=== PATIENT | female | born 1985 | race Caucasian/White ===

== ENCOUNTER 2016-12-21 10:43 | Emergency (ER) | payer BC ==
[2016-12-21 11:11] VITALS: BP 125/76
--- NOTE | 2016-12-21 12:21 | UC ---
Upper Extremity HPI - HPI Summary HPI Summary: Patient slammed her hand in the car door yesterday, blood pulling under right middle nail. pain in the distal phalange - History of Current Complaint Chief Complaint: PATRICIAkin Stated Complaint: RIGHT HAND MIDDLE FINGER INJURY Time Seen by Provider: 12/21/16 11:54 Hx Obtained From: Patient Hx Last Menstrual Period: 2007 ?: No Onset/Duration: Sudden Onset, Lasting Hours Severity Initially: Moderate Severity Currently: Severe Location Of Pain: Is Diffuse - finger Character: Aching, Throbbing, Stiffness Aggravating Factor(s): Movement Alleviating Factor(s): Nothing Associated Signs And Symptoms: Positive: Swelling, Bruising - Risk Factors Non-Orthopedic Risk Factor: Negative - Allergies/Home Medications Allergies/Adverse Reactions: Allergies Allergy/AdvReac Type Severity Reaction Status Date / Time No Known Allergies Allergy Verified 12/21/16 11:05 PMH/Surg Hx/FS Hx/Imm Hx Previously Healthy: Yes Endocrine History Of: Denies: Diabetes, Thyroid Disease Cardiovascular History Of: Denies: Cardiac Disorders, Hypertension, Pacemaker/ICD Respiratory History Of: Denies: COPD, Asthma GI/ History Of: Denies: Gastroesophageal Reflux, Ulcer, Renal Disease Neurological History Of: Denies: CVA, Dementia, Seizures Other History Of: Negative For: Anticoagulant Therapy - Surgical History Surgical History: None - Family History Known Family History: Positive: None Negative: Cardiac Disease, Hypertension - Social History Alcohol Use: Occasionally Alcohol Amount: once a week- 10 drinks/ week Substance Use Type: None Smoking Status (MU): Former Smoker Type: Cigarettes Amount Used/How Often: socially When Did the Patient Quit Smoking/Using Tobacco: May 2016 Review of Systems Constitutional: Negative Skin: Bruising Eyes: Negative ENT: Negative Respiratory: Negative Cardiovascular: Negative Gastrointestinal: Negative Genitourinary: Negative Motor: Negative Neurovascular: Negative Musculoskeletal: Negative Neurological: Negative Psychological: Negative All Other Systems Reviewed And Are Negative: Yes Physical Exam Triage Information Reviewed: Yes Appearance: Well-Appearing, Well-Nourished, Pain Distress Vital Signs: Initial Vital Signs Temp 98.3 F 12/21/16 11:06 Pulse 57 12/21/16 11:06 Resp 14 12/21/16 11:06 BP 125/76 12/21/16 11:06 Pulse Ox 99 12/21/16 11:06 Vital Signs Reviewed: Yes Eye Exam: Normal Eyes: Positive: Conjunctiva Clear ENT Exam: Normal ENT: Positive: Pharynx normal, TMs normal Dental Exam: Normal Neck exam: Normal Respiratory Exam: Normal Cardiovascular Exam: Normal Abdominal Exam: Normal Abdomen Description: Positive: Nontender, No Organomegaly, Soft Bowel Sounds: Positive: Present Musculoskeletal: Positive: Strength Limited @, ROM Limited @, Edema @ - in right middle finger Neurological Exam: Normal Neurological: Positive: Alert, Muscle Tone Normal Psychological Exam: Normal Skin: Positive: Other - ecchymosis under the nail bed, erythema around the nail. swelling apparent Upper Extremity Course/Dx - Course Course Of Treatment: hx obtained, exam performed, meds reviewed, subungal hematoma releaved, xray of finger obtained and is negative - Differential Dx/Diagnosis Differential Diagnosis/HQI/PQRI: Contusion, Fracture (Open), Fracture (Closed), Hematoma, Strain, Sprain Provider Diagnoses: subungal hematoma Discharge - Discharge Plan Condition: Stable Disposition: HOME Patient Education Materials: Subungual Hematoma (ED) Additional Instructions: 1. keep the area clean and dry, warm water soaks will help with healing 2. there is no fracture of the finger seen on xray.
--- NOTE | 2016-12-21 12:46 | RAD ---
INDICATION: Right third digit injury COMPARISON: None TECHNIQUE: AP, lateral, and oblique views were obtained. FINDINGS: The bony structures, joint spaces, and soft tissues are normal for age. IMPRESSION: NO ACUTE FRACTURE.
[2016-12-21] MEDS ORDERED: Ibuprofen TAB* 600 MG PO ONE (12:49)
== END 2016-12-21 13:03 | disposition home or self-care (01) ==
LOC: UCCORT 10:43
DX: S60.131A Contusion of right middle finger with damage to nail, initial encounter (principal); X58.XXXA Exposure to other specified factors, initial encounter; Z87.891 Personal history of nicotine dependence
CPT/HCPCS: 11740; 73140; 99212; A9270-GY; G0463

== ENCOUNTER 2018-02-26 13:49 | Emergency (ER) | payer BC, OTHER ==
--- NOTE | 2018-02-26 15:06 | UC ---
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 Burning pain. Worse with certain movements. Some radiation of pain down into the hand. No history of previous upper back injury or pain. - History of Current Complaint Chief Complaint: UCBackPain Stated Complaint: BACK INJURY/PAIN Time Seen by Provider: 02/26/18 14:59 Hx Obtained From: Patient Hx Last Menstrual Period: Mar 2008 ?: No Onset/Duration: Sudden Onset, Lasting Hours - 5 Timing: Constant Severity Initially: Moderate Severity Currently: Moderate Pain Intensity: 5 Back Pain: Is Discrete @ - thoracic upper back, Radiates To - having radiation down the left arm into the hand Character: Sharp, Burning Aggravating Factor(s): Movement Associated Signs And Symptoms: Positive: Tingling. Negative: Swelling, Redness , Bruising, Fever, Weakness, Numbness, Bladder Incontinence, Bowel Incontinence Related History: Occupational Injury - Allergies/Home Medications Allergies/Adverse Reactions: Allergies Allergy/AdvReac Type Severity Reaction Status Date / Time No Known Allergies Allergy Verified 02/26/18 14:11 PMH/Surg Hx/FS Hx/Imm Hx Previously Healthy: Yes Other History Of: Negative For: Anticoagulant Therapy - Surgical History Surgical History: None - Family History Known Family History: Positive: None Negative: Cardiac Disease, Hypertension - Social History Occupation: Employed Full-time Lives: With Family Alcohol Use: None Alcohol Amount: once a week- 10 drinks/ week Substance Use Type: None Smoking Status (MU): Light Every Day Tobacco Smoker Type: Cigarettes Amount Used/How Often: 1 pack every 3 days Have You Smoked in the Last Year: Yes When Did the Patient Quit Smoking/Using Tobacco: May 2016 Cessation Counseling: Patient Advised to Stop - Immunization History Most Recent Tetanus Shot: UTD Review of Systems Neurological: Paresthesia Is Patient Immunocompromised?: No All Other Systems Reviewed And Are Negative: Yes Physical Exam Triage Information Reviewed: Yes Appearance: Well-Appearing, Well-Nourished, Pain Distress Vital Signs: Initial Vital Signs Temp 98.5 F 02/26/18 14:12 Pulse 99 02/26/18 14:12 Resp 16 02/26/18 14:12 BP 141/81 02/26/18 14:12 Pulse Ox 100 02/26/18 14:12 Vital Signs Reviewed: Yes Eyes: Positive: Conjunctiva Clear Neck exam: Normal Respiratory Exam: Normal Cardiovascular Exam: Normal Musculoskeletal: Positive: Other: - Tender in the thoracic spine around T5T6. Neurological Exam: Normal - upper extremity strength and reflexes. Neurological: Positive: Other: - Abnormal sensation to sharp dull in the left upper back and hypersensitive in the right upper back. Some hypersensitivity in the right forearm around the Diagnostics - Radiology No standard instances Xray Interpretation: No Acute Changes - Just OA changes Radiology Interpretation Completed By: ED Physician Back Pain Course/Dx - Differential Dx/Diagnosis Differential Diagnosis/HQI/PQRI: Arthritis, Herniated Disc, Strain, Sprain Provider Diagnoses: Acute thoracic radiculitis. Acute cervical radiculitis Discharge - Sign-Out/Discharge Documenting (check all that apply): Patient Departure - Discharge Plan Condition: Stable Disposition: HOME Prescriptions: Gabapentin CAP(*) [Neurontin 300 CAP(*)] 300 mg PO TID PRN #90 cap PRN Reason: Pain - Back predniSONE [Prednisone 20 MG TAB] 20 mg PO DAILY #18 tablet Patient Education Materials: Thoracic Disc Herniation (ED), Cervical Disc Herniation (ED), Prednisone (By mouth), Gabapentin (By mouth) Referrals: No Primary Care Phys,NOPCP [Primary Care Provider] - Lottie Morales MD [Medical Doctor] - 2 Days (follow up SEVERIANO on thoracic pinched nerve.) Additional Instructions: GABAPENTIN: Gabapentin is an anti-seizure medication that is more often used for nerve pain. It helps to stabilize the nerve to stop the pain. Its primary side effect is sedation which will improve over time. Most people will start with only one capsule 1 to 2 hours before bed, but if your pain is more severe you may want to start with one capsule twice a day. If the pain is still an issue after another 1-2days the dose may be increased to a maximum of 1 capsule 3 times a day. Decrease the dose by one capsule a day if there is excessive sedation or it is not working. You can also decrease it to discontinue it if the pain is resolving. - Billing Disposition and Condition Condition: STABLE Disposition: Home
--- NOTE | 2018-02-26 16:11 | RAD ---
Indication: Neck pain, cervical radiculitis. 5 views of the cervical spine demonstrates straightening of the normal lordosis. Disc spaces all well-preserved. Spinal canal appears to be intact. The intervertebral foramen appear patent. The vertebral bodies appear normal in height with no spondylolisthesis. No evidence of facet malalignment is present. IMPRESSION: Straightening of the normal lordosis. Otherwise no fracture. Spinal canal and foramen appear intact.
--- NOTE | 2018-02-26 16:13 | RAD ---
Indication: Cervical radiculitis, lifting injury. 2 views of the thoracic spine demonstrates some mild disc space narrowing in the upper thoracic spine. There is no evidence of compression fracture. Minimal osteophyte formation is noted at T7-T8, T6-T7 and T5-T6. IMPRESSION: Mild degenerative disc disease in the mid to upper thoracic spine without definite evidence of compression fracture.
[2018-02-26 16:20] VITALS: BP 120/74
== END 2018-02-26 16:23 | disposition home or self-care (01) ==
LOC: UCCORT 13:49
DX: M54.14 Radiculopathy, thoracic region (principal); M54.12 Radiculopathy, cervical region; X50.0XXA Overexertion from strenuous movement or load, initial encounter; Y93.89 Activity, other specified; Y92.9 Unspecified place or not applicable; F17.210 Nicotine dependence, cigarettes, uncomplicated
CPT/HCPCS: 72050; 72070; 99212; G0463

== ENCOUNTER → 2018-06-01 18:08 | Emergency (ER) | payer OTHER ==
--- OUTSIDE RECORDS SUMMARY | 2018-06-01 19:16 | XMS REPORT ---
:1985 External Reference #:[id number] Author Organization [facility] Address [address] [place] [address] [place] [address] Phone [phone] Care Team Providers Name Role Phone Patient's Choice Primary Care Physician Unavailable Payers Type Date Identification Payment Provider Subscriber Numbers Workers Compensation Onset: Policy Number: [employer] Jalyn Aguilar 02/26/2018 [id number] Group Number: [id number] [address] PayID: [place] [address] Problems Date Description Provider Status Onset: 03/30/2018 Brachial neuritis Roc Dixon M.D. Active Onset: 03/14/2018 Neck sprain Roc Dixon M.D. Active Family History Date Family Member(s) Problem(s) Comments General No Current Problems Siblings 3 Social History Type Date Description Comments Marital Status Significant Other Lives With Family Occupation Off right now Passpack injury at work ETOH Use Denies alcohol use Smoking Light tobacco smoker (10 or fewer cigarettes/day) Recreational Drug Use Denies Drug Use Daily Caffeine Consumes on average 1 cup of regular coffee per day Allergies, Adverse Reactions, Alerts Date Description Reaction Status Severity Comments 03/09/2018 NKDA active Medications Medication Date Status Form Strength Qnty SIG Indications Ordering Provider Methocarbamol Active Tablets 500mg 60tabs 1 by S16.1xxA Roc 018 mouth Zack, twice a M.D. day as needed for spasm Mirena (52 MG) Active IUD 20mcg/24HR Unknown 000 Gabapentin Hx Capsules 300mg 1 by Unknown 000 - mouth three 018 times a day Prednisone 00/00/0 Hx Tablets 20mg 3 PO Unknown 000 - daily x3days 018 then 2 PO daily x3 days then 1 PO daily x3 days Vital Signs Date Vital Result Comment 05/16/2018 Height 67 inches 5'7" Heart Rate 80 /min BP Systolic Sitting 130 mmHg BP Diastolic Sitting 82 mmHg Respiratory Rate 16 /min Body Temperature 99.2 F 04/25/2018 Height 67 inches 5'7" Heart Rate 64 /min BP Systolic Sitting 122 mmHg BP Diastolic Sitting 78 mmHg Body Temperature 98.0 F 03/30/2018 Height 67 inches 5'7" Weight 165.00 lb BP Systolic Sitting 118 mmHg BP Diastolic Sitting 72 mmHg Pain Level 4 BMI (Body Mass Index) 25.8 kg/m2 03/14/2018 Height 67 inches 5'7" Weight 165.00 lb BP Systolic Sitting 126 mmHg BP Diastolic Sitting 82 mmHg Pain Level 5 BMI (Body Mass Index) 25.8 kg/m2 Results Description No Information Procedures Description No Information Encounters Type Date Location Provider CPT E/M Dx Office Visit 05/16/2018 [facility] Roc Dixon [id number] [id number] 11:40a Of [facility] Office Visit 04/25/2018 [facility] Roc Dixon 05901 [id number] 11:10a [facility] Office Visit 03/30/2018 [facility] Roc Dixon 67439 M54.12 1:10p Of [facility] Office Visit 03/14/2018 [facility] Roc Dixon, 60968 S16.1xxA 9:40a Of [facility] S16.1xxA Plan of Care 05/16/2018 - Roc Dixon M.D.S16.1xxD Strain of muscle, fascia and tendon at neck level, subsFollow up:Recommend she discuss with comp referral for second opinion
[2018-06-01 19:32] VITALS: BP 118/76
--- NOTE | 2018-06-01 19:50 | UC ---
Back Pain HPI - HPI Summary HPI Summary: 32-year-old woman here with a chief complaint of thoracic back pain. This pain started on February 26, 2018 while at work while lifting. She was initially seen here at urgent care and evaluated in had plain x-rays done of her neck and her thoracic spine. The thoracic spine x-rays did show some degenerative disc disease in her upper thoracic spine. She ended up seeing neurosurgery and was evaluated for the neck pain. Patient reports having gone to [facility] for an MRI which she believes is just of her cervical spine not upper thoracic spine. She was recently discharged back to work after evaluation with neurosurgery. 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 No weakness or numbness the pain is just to the left of the thoracic spine in the upper thoracic area. No shortness of breath. - History of Current Complaint Chief Complaint: UCBackPain Stated Complaint: WC-BACK PAIN Time Seen by Provider: 06/01/18 19:27 Hx Last Menstrual Period: 04/02 Pain Intensity: 7 - Allergies/Home Medications Allergies/Adverse Reactions: Allergies Allergy/AdvReac Type Severity Reaction Status Date / Time No Known Allergies Allergy Verified 06/01/18 19:19 PMH/Surg Hx/FS Hx/Imm Hx Previously Healthy: Yes Other History Of: Negative For: Anticoagulant Therapy - Surgical History Surgical History: None - Family History Known Family History: Positive: None Negative: Cardiac Disease, Hypertension, Diabetes - Social History Alcohol Use: None Alcohol Amount: once a week- 10 drinks/ week Substance Use Type: None Smoking Status (MU): Light Every Day Tobacco Smoker Type: Cigarettes Amount Used/How Often: 1 pack every 3 days Have You Smoked in the Last Year: Yes When Did the Patient Quit Smoking/Using Tobacco: May 2016 - Immunization History Most Recent Tetanus Shot: UTD Review of Systems Constitutional: Negative Skin: Negative Eyes: Negative ENT: Negative Respiratory: Negative Cardiovascular: Negative Gastrointestinal: Negative Motor: Negative Neurovascular: Negative Musculoskeletal: Other: - SEE HPI Neurological: Negative Psychological: Negative Is Patient Immunocompromised?: No All Other Systems Reviewed And Are Negative: Yes Physical Exam Triage Information Reviewed: Yes Appearance: Well-Nourished, Pain Distress - MILD Vital Signs: Initial Vital Signs Temp 98.7 F 06/01/18 19:23 Pulse 72 06/01/18 19:23 Resp 18 06/01/18 19:23 BP 118/76 06/01/18 19:23 Pulse Ox 98 06/01/18 19:23 Vital Signs Reviewed: Yes Eye Exam: Normal Eyes: Positive: Conjunctiva Clear Neck exam: Normal Neck: Positive: Supple, Nontender Respiratory: Positive: Lungs clear, Normal breath sounds, No respiratory distress Cardiovascular: Positive: RRR Musculoskeletal: Positive: Other: - Patient is tender to palpation to the left of the upper thoracic spine approximately T4 to 6 between the thoracic spines and the medial border of the left scapula. Arms shoulders have full range of motion. Normal radial pulses bilaterally fingers wrists and elbows have full range of motion full-strength no sensation deficit. Normal capillary refill. No sensation deficit. Neurological Exam: Normal Neurological: Positive: Alert, Muscle Tone Normal Psychological Exam: Normal Psychological: Positive: Age Appropriate Behavior Skin Exam: Normal Back Pain Course/Dx - Course Course Of Treatment: Last time the patient was here she had a prednisone taper and was on gabapentin. She feels the prednisone did help with her pain but the gabapentin did not. She has been taking ibuprofen for the pain which helps minimally. Plan a prescription for prednisone taper and also ibuprofen. Also follow-up with occupational medicine, DR CA. - Differential Dx/Diagnosis Provider Diagnoses: THORACIC BACK PAIN Discharge - Sign-Out/Discharge Documenting (check all that apply): Patient Departure All imaging exams completed and their final reports reviewed: No Studies - Discharge Plan Condition: Stable Disposition: HOME Prescriptions: Ibuprofen TAB* [Motrin TAB* 600 MG] 600 mg PO Q6H PRN #30 tab PRN Reason: Pain predniSONE TAB* [Deltasone 20 MG TAB*] 20 mg PO DAILY #18 tab Patient Education Materials: Back Pain (ED) Forms: *Work Release Referrals: Edin Ca MD [Medical Doctor] - Additional Instructions: FOLLOW UP WITH [facility]UP[facility]. GET RECHECKED FOR ANY WORSENING OF YOUR CONDITION OR QUESTIONS OR CONCERNS. - Billing Disposition and Condition Condition: STABLE Disposition: Home
== END | disposition home or self-care (01) ==
LOC: UCCORT 18:08
DX: M54.6 Pain in thoracic spine (principal); F17.210 Nicotine dependence, cigarettes, uncomplicated
CPT/HCPCS: 99212; G0463

== ENCOUNTER 2018-09-09 09:58 | Emergency (ER) | payer MEDICAID, OTHER ==
[2018-09-09 11:11] VITALS: BP 139/75
[2018-09-09 11:36] LABS: Influenza A Molecular NEGATIVE (Negative); Influenza B Molecular NEGATIVE (Negative)
--- NOTE | 2018-09-09 12:14 | UC ---
FLU HPI - HPI Summary HPI Summary: Pt c/o sudden onset body aches, nasal congestion, cough X 1 day. Son has similar symptoms. - History of Current Complaint Chief Complaint: UCRespiratory Stated Complaint: FEVER,URIARTE,ST Time Seen by Provider: 09/09/18 11:06 Hx Obtained From: Patient Hx Last Menstrual Period: Mirena IUD ?: No Onset/Duration: Sudden Onset, Lasting Days, Still Present Severity Currently: Mild Severity Initially: Mild Pain Intensity: 3 Pain Scale Used: 0-10 Numeric Associated Signs & Symptoms: Positive: Fever - subjective, Myalgia, Cough, Nasal Congestion Related Hx: Possible Flu/Infectious Exposure - Risk Factors Influenza Risk Factors: Negative - Allergy/Home Medications Allergies/Adverse Reactions: Allergies Allergy/AdvReac Type Severity Reaction Status Date / Time No Known Allergies Allergy Verified 09/09/18 11:05 Home Medications: Home Medications Ibuprofen TAB* [Advil TAB*] 400 mg PO Q6H PRN 09/09/18 [History Confirmed ] PMH/Surg Hx/FS Hx/Imm Hx Previously Healthy: Yes Other History Of: Negative For: Anticoagulant Therapy - Surgical History Surgical History: None - Family History Known Family History: Positive: None Negative: Cardiac Disease, Hypertension, Diabetes - Social History Occupation: Employed Full-time Lives: With Family Alcohol Use: None Alcohol Amount: once a week- 10 drinks/ week Substance Use Type: None Smoking Status (MU): Light Every Day Tobacco Smoker Type: Cigarettes Amount Used/How Often: 1/10 PPD Length of Time of Smoking/Using Tobacco: On and Off Since Age 20 Have You Smoked in the Last Year: Yes When Did the Patient Quit Smoking/Using Tobacco: May 2016 - Immunization History Most Recent Tetanus Shot: UTD Review of Systems All Other Systems Reviewed And Are Negative: Yes Constitutional: Positive: Fever - subjective, Chills, Fatigue Skin: Positive: Negative Eyes: Positive: Negative ENT: Positive: Nasal Discharge, Sinus Congestion Respiratory: Positive: Cough Cardiovascular: Positive: Negative Gastrointestinal: Positive: Negative Genitourinary: Positive: Negative Motor: Positive: Negative Neurovascular: Positive: Negative Musculoskeletal: Positive: Myalgia Neurological: Positive: Negative Psychological: Positive: Negative Is Patient Immunocompromised?: No Physical Exam Triage Information Reviewed: Yes Appearance: Well-Appearing Vital Signs: Initial Vital Signs Temp 100 F 09/09/18 11:03 Pulse 88 09/09/18 11:03 Resp 18 09/09/18 11:03 BP 139/75 09/09/18 11:03 Pulse Ox 99 09/09/18 11:03 Vital Signs Reviewed: Yes Eye Exam: Normal ENT: Positive: Nasal congestion, Tonsillar swelling Dental Exam: Normal Neck exam: Normal Respiratory Exam: Normal Cardiovascular Exam: Normal Musculoskeletal Exam: Normal Neurological Exam: Normal Psychological Exam: Normal Skin Exam: Normal Flu Course/Dx - Differential Dx/Diagnosis Differential Diagnosis/HQI/PQRI: Influenza, Upper Respiratory Infection Provider Diagnosis: Viral syndrome Discharge - Sign-Out/Discharge Documenting (check all that apply): Patient Departure All imaging exams completed and their final reports reviewed: No Studies - Discharge Plan Condition: Stable Disposition: HOME Patient Education Materials: Viral Syndrome (ED) Referrals: Priya De Jesus MD [Primary Care Provider] - If Needed - Billing Disposition and Condition Condition: STABLE Disposition: Home
== END 2018-09-09 11:59 | disposition home or self-care (01) ==
LOC: UCCORT 09:58
DX: B34.9 Viral infection, unspecified (principal); R05 Cough; R51 Headache; J02.9 Acute pharyngitis, unspecified; M79.10 Myalgia, unspecified site; F17.210 Nicotine dependence, cigarettes, uncomplicated
CPT/HCPCS: 36415; 86703; 99211; G0463

== ENCOUNTER 2018-09-18 16:52 | Emergency (ER) | payer MEDICAID, OTHER ==
[2018-09-18 17:31] VITALS: BP 124/79
--- NOTE | 2018-09-18 17:31 | UC ---
Knee Pain HPI - HPI Summary HPI Summary: Patient was at a park, jumped up came down on both feet, felt the left knee go sideways and buckle, landed on front of her knee, pain around the lateral side of patella and top of tibia. patient is aslo requesting testing for chlamydia as her boyfriend thinks he contracted it from his ex girlfriend. she has had increased vaginal discharge. - History of Current Complaint Chief Complaint: UCLowerExtremity Stated Complaint: LEFT KNEE COMPLAINT Time Seen by Provider: 09/18/18 17:22 Hx Obtained From: Patient Hx Last Menstrual Period: Mirena IUD ?: No Onset/Duration: Sudden Onset, Lasting Hours Severity Initially: Severe Severity Currently: Severe Character: Throbbing, Stiffness Aggravating Factor(s): Movement, Weight Bearing, Prolonged Standing, Stairs Alleviating Factor(s): Nothing Associated Signs And Symptoms: Positive: Swelling, Weakness Able to Bear Weight: Yes - with difficulty - Allergies/Home Medications Allergies/Adverse Reactions: Allergies Allergy/AdvReac Type Severity Reaction Status Date / Time No Known Allergies Allergy Verified 09/18/18 17:20 PMH/Surg Hx/FS Hx/Imm Hx Previously Healthy: Yes Other History Of: Negative For: Anticoagulant Therapy - Surgical History Surgical History: None - Family History Known Family History: Positive: None Negative: Cardiac Disease, Hypertension, Diabetes - Social History Alcohol Use: None Alcohol Amount: once a week- 10 drinks/ week Substance Use Type: None Smoking Status (MU): Light Every Day Tobacco Smoker Type: Cigarettes Amount Used/How Often: 1/10 PPD Length of Time of Smoking/Using Tobacco: On and Off Since Age 20 Have You Smoked in the Last Year: Yes When Did the Patient Quit Smoking/Using Tobacco: May 2016 - Immunization History Most Recent Tetanus Shot: UTD Review of Systems All Other Systems Reviewed And Are Negative: Yes Constitutional: Positive: Negative Skin: Positive: Negative Eyes: Positive: Negative ENT: Positive: Negative Respiratory: Positive: Negative Cardiovascular: Positive: Negative Gastrointestinal: Positive: Negative Genitourinary: Positive: Negative Motor: Positive: Negative Neurovascular: Positive: Negative Musculoskeletal: Positive: Arthralgia, Decreased ROM, Edema, Myalgia Neurological: Positive: Negative Psychological: Positive: Negative Is Patient Immunocompromised?: No Physical Exam Triage Information Reviewed: Yes Appearance: Well-Appearing, Well-Nourished, Pain Distress Vital Signs Reviewed: Yes Eye Exam: Normal ENT Exam: Normal ENT: Positive: Pharynx normal, TMs normal Respiratory Exam: Normal Cardiovascular Exam: Normal Abdominal Exam: Normal Musculoskeletal: Positive: Strength Limited @ - in weight bearing, ROM Limited @ - in far flx and ext, Edema @ - of the left knee joint Neurological Exam: Normal Psychological Exam: Normal Skin Exam: Normal Knee Pain Course/Dx - Course Course Of Treatment: hx obtained, exam performed ,meds reviewed, knee xray obtained, no bony abnormality noted. will wait for official read. sent patient home with marina, knee immobilizer and referral to ortho. - Differential Dx/Diagnosis Differential Diagnosis/HQI/PQRI: Contusion, Fracture (Closed), Sprain, Strain Provider Diagnosis: Knee pain, acute Discharge - Sign-Out/Discharge Documenting (check all that apply): Patient Departure All imaging exams completed and their final reports reviewed: No - Discharge Plan Condition: Stable Disposition: HOME Patient Education Materials: Knee Pain (ED) Referrals: Priya De Jesus MD [Primary Care Provider] - Gus Cole MD [Medical Doctor] - Additional Instructions: 1. continue with ice and marina wrap for compression 2. use the knee immobilizer till seen by ortho 3. Use ibuprofen 400 - 600 mg every 4-6 hours. 4. The official radiology read will be available tomorrow by noon. 5. I recommend follow up with ortho if not improving in suman next 48 hours. 6. your urine test will be available in 48 hours, we call on all positive results. - Billing Disposition and Condition Condition: STABLE Disposition: Home
--- NOTE | 2018-09-19 07:02 | UC ---
- EKG/XRAY/CT Xray Comments: knee -no fx Course/Dx - Diagnoses Provider Diagnoses: Knee pain, acute Discharge - Sign-Out/Discharge Documenting (check all that apply): Post-Discharge Follow Up All imaging exams completed and their final reports reviewed: Yes - Discharge Plan Condition: Stable Disposition: HOME Patient Education Materials: Knee Pain (ED) Referrals: Gus Cole MD [Medical Doctor] - Priya De Jesus MD [Primary Care Provider] - Additional Instructions: 1. continue with ice and marina wrap for compression 2. use the knee immobilizer till seen by ortho 3. Use ibuprofen 400 - 600 mg every 4-6 hours. 4. The official radiology read will be available tomorrow by noon. 5. I recommend follow up with ortho if not improving in suman next 48 hours. 6. your urine test will be available in 48 hours, we call on all positive results. - Billing Disposition and Condition Condition: STABLE Disposition: Home
[2018-09-21 12:07] LABS: Neisseria gonorrhoeae (GC) RNA Positive (Negative)
== END 2018-09-18 18:12 | disposition home or self-care (01) ==
LOC: UCCORT 16:52
DX: M25.562 Pain in left knee (principal); N89.8 Other specified noninflammatory disorders of vagina; F17.210 Nicotine dependence, cigarettes, uncomplicated
CPT/HCPCS: 87491; 87591; 99213; G0463

== ENCOUNTER 2018-09-21 13:35 | Emergency (ER) | payer MEDICAID, OTHER ==
[2018-09-21 14:42] VITALS: BP 124/84
[2018-09-21] MEDS ORDERED: cefTRIAXone VIAL(*) 250 MG VIAL IM ONE (14:54)
[2018-09-21] MEDS ORDERED: Azithromycin TAB* 250 MG PO ONE (14:55)
--- NOTE | 2018-09-21 15:14 | UC ---
Complaint Female HPI - HPI Summary HPI Summary: Pt presents for treatment of gonorrhea. Pt was called today with positive test results. - History Of Current Complaint Chief Complaint: UCGU Stated Complaint: PERSONAL Time Seen by Provider: 09/21/18 14:43 Hx Obtained From: Patient Hx Last Menstrual Period: Mirena IUD ?: No Onset/Duration: Sudden Onset Timing: Constant Severity Currently: None Pain Intensity: 0 Character: Not Applicable Aggravating Factor(s): Nothing Alleviating Factor(s): Nothing Associated Signs And Symptoms: Positive: Negative - Risk Factors Ectopic Risk Factor: Maternal Age ^ 30, IUD Use Ovarian Torsion Risk Factor: Reproductive Age - Allergies/Home Medications Allergies/Adverse Reactions: Allergies Allergy/AdvReac Type Severity Reaction Status Date / Time No Known Allergies Allergy Verified 09/21/18 14:42 PMH/Surg Hx/FS Hx/Imm Hx Previously Healthy: Yes Other History Of: Negative For: Anticoagulant Therapy - Surgical History Surgical History: None - Family History Known Family History: Positive: None Negative: Cardiac Disease, Hypertension, Diabetes - Social History Occupation: Employed Full-time Lives: With Family Alcohol Use: None Alcohol Amount: once a week- 10 drinks/ week Substance Use Type: None Smoking Status (MU): Light Every Day Tobacco Smoker Type: Cigarettes Amount Used/How Often: 1/10 PPD Length of Time of Smoking/Using Tobacco: On and Off Since Age 20 Have You Smoked in the Last Year: Yes When Did the Patient Quit Smoking/Using Tobacco: May 2016 - Immunization History Most Recent Tetanus Shot: UTD Review of Systems All Other Systems Reviewed And Are Negative: Yes Constitutional: Positive: Negative Skin: Positive: Negative Eyes: Positive: Negative ENT: Positive: Negative Respiratory: Positive: Negative Cardiovascular: Positive: Negative Gastrointestinal: Positive: Negative Genitourinary: Positive: Negative Motor: Positive: Negative Neurovascular: Positive: Negative Musculoskeletal: Positive: Negative Neurological: Positive: Negative Psychological: Positive: Negative Is Patient Immunocompromised?: No Physical Exam Triage Information Reviewed: Yes Appearance: Well-Appearing Vital Signs: Initial Vital Signs Temp 98.2 F 09/21/18 14:39 Pulse 65 09/21/18 14:39 Resp 16 09/21/18 14:39 BP 124/84 09/21/18 14:39 Pulse Ox 100 09/21/18 14:39 Vital Signs Reviewed: Yes Eye Exam: Normal ENT Exam: Normal Dental Exam: Normal Neck exam: Normal Respiratory Exam: Normal Respiratory: Positive: No respiratory distress Musculoskeletal Exam: Normal Neurological Exam: Normal Psychological Exam: Normal Skin Exam: Normal Complaint Female Dx - Differential Dx/Diagnosis Differential Diagnosis/HQI/PQRI: Sexually Transmitted Disease, Urinary Tract Infection Provider Diagnosis: Gonorrhea Discharge - Sign-Out/Discharge Documenting (check all that apply): Patient Departure All imaging exams completed and their final reports reviewed: No Studies - Discharge Plan Condition: Stable Disposition: HOME Patient Education Materials: Sexually Transmitted Diseases (ED) Referrals: Priya De Jesus MD [Primary Care Provider] - - Billing Disposition and Condition Condition: STABLE Disposition: Home
== END 2018-09-21 15:33 | disposition home or self-care (01) ==
LOC: UCCORT 13:35
DX: A54.9 Gonococcal infection, unspecified (principal); F17.210 Nicotine dependence, cigarettes, uncomplicated
CPT/HCPCS: 96372; 99212; A9270-GY; G0463; J0696

== ENCOUNTER 2018-11-07 06:19 | Day surgery (SDC) | payer OTHER ==
--- NOTE | 2018-11-03 15:14 | HP ---
PREOPERATIVE HISTORY AND PHYSICAL: DATE OF SURGERY: 11/07/18 ATTENDING SURGEON: Dr. Osmani Steele.* (DICTATED BY SHENA LEVY) PROCEDURE: Left knee arthroscopy, anterior cruciate ligament reconstruction, possible arthroscopy, possible meniscectomy. CHIEF COMPLAINT: Left knee pain. HISTORY OF PRESENT ILLNESS: Jalyn is a 33-year-old female who presents to the clinic for left knee instability due to an ACL tear. She has failed conservative measures and therefore agreed to undergo a left knee arthroscopy, anterior cruciate ligament reconstruction, possible arthroscopy, partial meniscectomy with Dr. Steele on 11/07/18. PAST MEDICAL HISTORY: Chronic low back pain. PAST SURGICAL HISTORY: No past surgeries. MEDICATIONS: Mirena 20 mcg for 24 hours. ALLERGIES: No known drug allergies. FAMILY HISTORY: Positive for cancer. Denies family history of DVT or PE. SOCIAL HISTORY: She lives with her family. She is not working. She denies tobacco use. She denies alcohol consumption. She exercises regularly. She is right-hand dominant. REVIEW OF SYSTEMS: A 14-point review of systems was reviewed with the patient. Positive for current complaint, otherwise negative. Denies fevers, chills, chest pain, shortness of breath, history of bleeding disorder, history of DVT and PE. PHYSICAL EXAMINATION GENERAL: A 33-year-old, well-developed, well-nourished female, in no acute distress. VITAL SIGNS: Height 67, weight 184, pulse 68, blood pressure 98/62, temperature 97.7, BMI 28.9. HEENT: Normocephalic, atraumatic. PERRLA. Throat: Clear. NECK: Supple. PULMONARY: Lungs are clear to auscultation bilaterally. No wheezing, rhonchi, or rales. CARDIO: Regular rate and rhythm. S1, S2. No murmurs, gallops, rubs. No edema. ABDOMEN: Positive bowel sounds. Soft, nontender. NEUROLOGIC: Alert and oriented x3. Cranial nerves grossly intact. MUSCULOSKELETAL: Left lower extremity: Skin is intact. No warmth or erythema. Mild effusion. Nontender over the joint line. Range of motion 0 to 130. Stable to varus and valgus stress. 2B Leticia and negative posterior drawer. 5/5 strength, ankle dorsiflexion and plantarflexion. +2 DP pulse. Sensation intact to light touch distally. Calves soft and nontender. DIAGNOSTIC STUDIES: MRI revealed complete ACL rupture with associated bone bruising. IMPRESSION: Left knee anterior cruciate ligament tear. PLAN/RECOMMENDATIONS: The patient is scheduled to undergo a left knee arthroscopy, anterior cruciate ligament reconstruction, possible arthroscopy, possible meniscectomy with Dr. Steele on 11/07/18. She will follow up in 8 days postop. Follow up for suture removal and Vicodin will be used for postop pain management. SHENA LEVY [id number]/[facility] #: [id number] AIDAN
[~2018-11-07 06:19] MED LIST: Buffered Lidocaine 1% SYRIN* 1 ML/SYRINGE INTRADERM ONE; Dexamethasone IV* 4 MG/ML 1 ML (4 MG) IV SLOW PU ONE; Dexamethasone IV* 4 MG/ML 1 ML (4 MG) ONE; Famotidine IV* 10 MG/ML 2 ML (20 mg) IV ONE; Famotidine IV* 10 MG/ML 2 ML (20 mg) ONE; Lactated Ringers 1000 ML Bag* 1,000 ML IV SCH
[2018-11-07] MEDS ORDERED: ceFAZolin 2 GM PREMIX in ORs 2 GM/50 ML BAG IVPB ONE (06:26)
[2018-11-07] MEDS ORDERED: Lidocaine 1% MPF wEPI 200,000* 30 ML SDV ONE (07:12)
[2018-11-07] MEDS ORDERED: Bupivacaine 0.25% SDV* 30 ML ONE (07:13)
[2018-11-07] MEDS ORDERED: fentaNYL* 50 MCG/ML 5 ML VIAL (250 MCG VIAL) ONE (07:14)
[2018-11-07] MEDS ORDERED: Midazolam* 1 MG/ML 5 ML VIAL (5 MG) ONE (07:14)
[2018-11-07] MEDS ORDERED: Atracurium* 10 MG/ML 10 ML VIAL ONE (07:14)
[2018-11-07] MEDS ORDERED: Propofol* 10 MG/ML 20 ML BTL ONE (07:15)
[2018-11-07] MEDS ORDERED: Lidocaine 2% PF * 5 ML VIAL ONE (07:15)
[2018-11-07] MEDS ORDERED: Ondansetron INJ* 2 MG/ML VIAL ONE (07:15)
[2018-11-07] MEDS ORDERED: Ketorolac INJ* 30 MG/ML 1 ML VIAL ONE (07:15)
[2018-11-07] MEDS ORDERED: fentaNYL* 50 MCG/ML 2 ML VIAL (100 MCG VIAL) ONE (07:53)
[2018-11-07] MEDS ORDERED: fentaNYL* 50 MCG/ML 2 ML VIAL (100 MCG VIAL) IV PRN (08:02)
[2018-11-07] MEDS ORDERED: DiMENhydriNATE IV* 50 MG/ML VIAL IV PUSH PRN (08:02)
[2018-11-07] MEDS ORDERED: oxyCODONE/Acetamin 5/325 MG* TAB PO PRN (08:02)
[2018-11-07] MEDS ORDERED: HYDROmorphone INJ1* 1 MG/ML SYRINGE IV PRN (08:02)
[2018-11-07] MEDS ORDERED: Scopolamine 1.5 mg* PATCH TRANSDERM PRN (08:02)
[2018-11-07] MEDS ORDERED: Ondansetron INJ* 2 MG/ML VIAL IV PRN (08:02)
[2018-11-07] MEDS ORDERED: Naloxone* 0.4 MG/ML 1 ML VIAL IV PRN (08:02)
[2018-11-07] MEDS ORDERED: oxyCODONE/Acetamin 5/325 MG* TAB ONE (09:23)
[2018-11-07] MEDS ORDERED: Scopolamine 1.5 mg* PATCH ONE (09:23)
[2018-11-07] MEDS ORDERED: DiMENhydriNATE IV* 50 MG/ML VIAL ONE (09:23)
[2018-11-07 10:02] VITALS: BP 114/73
--- NOTE | 2018-11-07 12:14 | OP ---
CC: PCP, Priya De Jesus MD * DATE OF OPERATION: 11/07/18 [facility] DATE OF : 89 SURGEON: Osmani Steele MD ELECTRON GUN INSPECTOR: SHENA Almodovar. Electrical Troubleshooter was needed for the entirety of the case to help with positioning, retraction, and was utilized throughout all portions of the case. ANESTHESIOLOGIST: Dr. Gomez. ANESTHESIA: General. PRE-OP DIAGNOSIS: Left knee grade 3 ACL rupture. POST-OP DIAGNOSIS: Left knee grade 3 ACL rupture partial lateral meniscus fraying. OPERATIVE PROCEDURE: Left knee arthroscopy with: 1. ACL reconstruction using BTB autograft. 2. Partial lateral meniscectomy. TOURNIQUET TIME: 18 minutes at 250 mmHg. COMPLICATIONS: None. ESTIMATED BLOOD LOSS: Minimal. INDICATIONS: Jalyn Aguilar is a 33-year-old female who sustained a left knee injury when she was playing tag with her kid. She had immediate instability. She is very active. Risks and benefits of surgery were discussed at length and she would like to proceed with surgical treatment. DESCRIPTION OF PROCEDURE: The patient was greeted in the preoperative area by the attending surgeon. The correct extremity was marked and consent was confirmed. The patient was brought back to the operating suite. She was placed in supine position on the operating table and underwent general anesthesia with LMA intubation after which a nonsterile tourniquet was placed high on the proximal thigh. Lateral post was positioned and the dutton bag was placed to keep the knee at 90 degrees. The left leg was then prepped and draped in the usual sterile fashion with chlorhexidine soap, scrub, and alcohol wipe and a final prep with ChloraPrep. After appropriate surgical pause indicating side, site, procedure, and administration of antibiotics, the knee was intra-articularly injected with 1% lidocaine with epi. The limb was exsanguinated and tourniquet inflated to 250 mmHg. The 15 blade was used to make an incision medial to the patellar tendon. Soft tissues were carefully dissected to expose the paratenon, which was then taken with full-thickness flaps for layer to close. The tendon was identified. It was found to be about 36 mm in width. The center 10 mm were then harvested in full- thickness flaps for a 10 mm width graft. Proximally, the bone block was harvested using sagittal saw and osteotome for a 9 x 22 mm bone block, distally 10 x 30 mm. The graft was harvested by the attending surgeon and was prepared on the back table by the certified nursing assistant. The patellar tendon was then closed with 0 Vicryl in an interrupted fashion with care to prevent patella baja. The tourniquet was then deflated. Attention was directed to the arthroscopy. An 11 blade was used to make an incision through the capsule. The scope was brought into the joint. The joint was examined. There was abundant synovitis present. The anteromedial portal was made in an outside-in fashion. The shaver was used to debride back the abundant significant fat pad, bursa, and plica. The ACL was found to be torn from the femoral insertion. The patellofemoral joint was examined. There were grade 0 changes and the mediolateral gutters were intact without any loose bodies or debris. The medial compartment was examined. There was a small area on the weightbearing zone of grade 1 change, to the center of this may be 1 to 2. The remainder of the cartilage had grade 0 changes. The medial meniscus was intact. Medial plateau had grade 0 changes. The knee was placed in figure-four. The lateral meniscus had fraying at the root as well as at the body. This was debrided back using the shaver. The lateral femoral condyle had grade 0 and 1 changes, lateral plateau 0 and 1 changes. At this point, attention was directed to the ACL. The ACL remnants were removed using elia and biters. The lateral wall was prepared in the usual fashion. Then, an awl was used to bettina the femoral condyle to allow for the femoral tunnel positioning used as a reference point. The tip-to- tip guide was then placed at 50 degrees for the tibial insertion. Once the center was identified, the guidewire was then inserted. Once this was appropriately positioned, the size 10 mm full-bore reamer was used to drill the tibial tunnel. The bone quality was somewhat okay to poor. The tunnel was then rasped and the excess soft tissue was removed. Care was placed to prevent fluid egress. The Cl[employer]hew femoral guide was then placed using the rotor pilot hole as a reference point and the Beath pin was then placed through the center of the femoral tunnel out through the lateral cortex through the IT band and skin. The size 9-mm low- profile reamer was used to drill the tunnel to a depth of about 25 mm. All excess bone debris was removed. The tunnel was then carefully notched. A #2 Ethibond was placed through the eyelet of the Beath pin and then advanced through the skin laterally and anterograde through the tibial tunnel. At this point, the graft, which had been previously prepared and wrapped in saline-soaked gauze was then brought to the field and placed under direct arthroscopic visualization to be well- seated. The femoral tunnel was then secured with a size 7 x 20 mm SOFTSILK screw with excellent purchase. The knee was then cycled, taken to full extension. There was no evidence of impingement. The knee was cycled approximately 15 times with no evidence of change in graft. The scope was brought back to the joint to visualize that the graft was still in the correct position. The knee was then placed in about 30 degrees of flexion with tension on the tibial sutures. The size 9 x 25 mm SOFTSILK screw was used to secure the tibial tunnel. The knee was taken through full range of motion. Leticia test was found to be stable. The scope was brought back into the joint. The graft was positioned appropriately. The wounds were then copiously irrigated with sterile saline. The excess bone was removed and bone graft was placed in the patellar and tibial defects oversewn with 0 Vicryl. The paratenon was closed with 2-0 Vicryl in a running fashion. The skin was closed in layers with 3-0 Monocryl deep in a running fashion. Sterile dressings were applied. The wound was injected with 0.2% ropivacaine. Sterile dressings were applied with Cryo/Cuff and hinged knee brace locked in extension. She was awoken from anesthesia and transferred to the PACU in stable condition. POSTOPERATIVE PLAN: She will be discharged on pain medication, DVT prophylaxis considered, but deferred as there is no personal family history, but she does take control and therefore will be placed on aspirin. I will see the patient back in 6 to 8 days. She will start physical therapy this week. [id number]/[facility] #: [id number] [facility] MEDICAL CENTERShad
== END 2018-11-07 10:20 | disposition home or self-care (01) ==
LOC: OREAST 06:19
PROVIDERS: ATTEND Orthopaedic Surgery
DX: S83.512A Sprain of anterior cruciate ligament of left knee, initial encounter (principal); S83.282A Other tear of lateral meniscus, current injury, left knee, initial encounter; X58.XXXA Exposure to other specified factors, initial encounter; Y92.9 Unspecified place or not applicable; Z87.891 Personal history of nicotine dependence
CPT/HCPCS: 81025; A9270-GY; C1713; J0690; J1100; J1240; J1885; J2001; J2250; J2405; J2704; J3010; J3490

== ENCOUNTER 2019-08-09 10:32 | Day surgery (SDC) | payer OTHER ==
[~2019-08-09 10:32] MED LIST changes: -Dexamethasone IV* 4 MG/ML 1 ML (4 MG) IV SLOW PU ONE; -Dexamethasone IV* 4 MG/ML 1 ML (4 MG) ONE; -Famotidine IV* 10 MG/ML 2 ML (20 mg) IV ONE; -Famotidine IV* 10 MG/ML 2 ML (20 mg) ONE
[2019-08-09] MEDS ORDERED: ceFAZolin 2 GM PREMIX in ORs 2 GM/50 ML BAG ONE (10:41)
[2019-08-09] MEDS ORDERED: fentaNYL* 50 MCG/ML 2 ML VIAL (100 MCG VIAL) ONE (11:14)
[2019-08-09] MEDS ORDERED: Midazolam* 1 MG/ML 2 ML VIAL (2 MG) ONE (11:14)
[2019-08-09] MEDS ORDERED: oxyCODONE TAB* 5 MG TAB PO PRN ×2 (11:32→13:55)
[2019-08-09] MEDS ORDERED: Naloxone* 0.4 MG/ML 1 ML VIAL IV PRN (11:32)
[2019-08-09] MEDS ORDERED: Ropivacaine 0.2% * 2 MG/ML VIAL ONE (12:00)
[2019-08-09] MEDS ORDERED: Lidocaine 1% w EPI 1:200,000* SDV 30 ML VIAL ONE (12:00)
[2019-08-09] MEDS ORDERED: Ondansetron INJ* 2 MG/ML VIAL ONE (12:17)
[2019-08-09] MEDS ORDERED: Dexamethasone IV* 4 MG/ML 1 ML (4 MG) ONE (12:17)
[2019-08-09] MEDS ORDERED: Lidocaine 2% PF* 10 ML AMP ONE (12:17)
[2019-08-09] MEDS ORDERED: Propofol* 10 MG/ML 20 ML BTL ONE (12:17)
[2019-08-09] MEDS ORDERED: Ketorolac INJ* 30 MG/ML 1 ML VIAL ONE (12:53)
[2019-08-09] MEDS ORDERED: HYDROmorphone INJ1* 1 MG/ML SYRINGE ONE (13:13)
[2019-08-09] MEDS: HYDROmorphone INJ1* 1 MG/ML SYRINGE IV PRN ×2 (13:14→13:25)
[2019-08-09] MEDS ORDERED: oxyCODONE TAB* 5 MG TAB ONE ×2 (13:35→13:55)
[2019-08-09 15:15] VITALS: BP 112/69
--- NOTE | 2019-08-16 10:30 | OP ---
DATE OF OPERATION: 08/09/19 - [facility] DATE OF : 89 SURGEON: Osmani Steele MD BILINGUAL MEDICAL ASSISTANT: None available. PRE-OP DIAGNOSIS: Left knee ankylosis, stiffness, status post anterior cruciate ligament reconstruction. POST-OP DIAGNOSIS: Left knee ankylosis, stiffness, status post anterior cruciate ligament reconstruction. OPERATIVE PROCEDURE: Left knee arthroscopy with synovectomy, lysis of adhesions , and chondroplasty and medial femoral condyle. COMPLICATIONS: None. ESTIMATED BLOOD LOSS: Minimal. INDICATIONS: Jalyn Aguilar is a 33-year-old female who underwent a previous ACL reconstruction with autograft. She did well; however, she had stiffness in a blocked motion. She also had a catch and pop which was due to scar tissue. She has failed conservative management including physical therapy, antiinflammatories, Medrol Dosepak, and she has elected to proceed with surgical treatment. Her knee remained stable at all times. She was able to get full extension but with pain. After extensive discussion of the risks and benefits, she has elected to proceed. DESCRIPTION OF PROCEDURE: The patient was greeted in the preoperative area by the attending surgeon. Correct extremity was marked. Consent was confirmed. The patient was brought back to the operating suite, placed in supine position on the operating table and underwent general anesthesia and LMA intubation, after which she was appropriately positioned. An unsterile tourniquet was placed high on the proximal thigh. A lateral post was positioned. Left leg was then prepped and draped in the usual sterile fashion beginning with chlorhexidine soap, scrub, and alcohol wipe and a final prep with ChloraPrep. After appropriate surgical pause indicating site, side, procedure, and administration of antibiotics, the knee was intra-articularly injected with 1% lidocaine with epi. The anterolateral portal was made sharply with 11 blade. There was abundant thick scar that was present and the anteromedial portal was made in a similar fashion. An electrocautery device and shaver were used to remove the thick tissue that was present around the patellar tendon and prepatellar area. The ACL was visualized and found to be intact. There was a small which was debrided back. There was evidence of a large amount of scar, one was abrading the medial aspect of the medial femoral condyle quite a bit. This was visualized and removed, so there would be no more friction. The medial compartment was examined. There were grade 0 to 1 changes. The medial meniscus was intact. The lateral compartment was examined. There was some fraying of the lateral meniscus and the lateral compartment had some mild fissuring. The shaver was used to debride this back. The patellofemoral joint eventually was examined and there were grade 0 changes, but there was abundant scar around and need to be removed. The medial femoral condyle had a small area of grade 1 to 2 changes in the weightbearing zone, which was debrided back using the shaver. Once the adhesions were removed, hemostasis was maintained and the knee was taken through a range of motion and there was no evidence of further clunk or scarring. She was awoken from anesthesia and transferred to the PACU in stable condition. POSTOPERATIVE PLAN: She will be weightbearing as tolerated. Range of motion as tolerated. She will be discharged on pain medications, antibiotics due to revision surgery. I will see the patient back in 10 to 14 days. [id number]/[facility] #: [id number] AIDAN
== END 2019-08-09 15:17 | disposition home or self-care (01) ==
LOC: OR 10:32
PROVIDERS: ATTEND Orthopaedic Surgery
DX: M24.662 Ankylosis, left knee (principal); S83.512D Sprain of anterior cruciate ligament of left knee, subsequent encounter; X58.XXXD Exposure to other specified factors, subsequent encounter; Y92.9 Unspecified place or not applicable; M54.5 Low back pain; Z87.891 Personal history of nicotine dependence; M19.90 Unspecified osteoarthritis, unspecified site
CPT/HCPCS: 81025; A9270-GY; J0690; J1100; J1170; J1885; J2001; J2250; J2405; J2704; J2795; J3010